=== PATIENT | male | born 1985 | race Caucasian/White ===

== ENCOUNTER 2019-03-08 00:01 | Inpatient (IN) | payer OTHER ==
[~2019-03-08] VITALS: Ht 182.9 cm; Wt 113.4 kg
[2019-03-08] VITALS (7 sets, daily range): BP systolic 98–125; BP diastolic 50–70
--- NOTE | 2019-03-08 00:02 | NUR ---
PT BIBA BLS TAKEN TO BED 2
--- NOTE | 2019-03-08 00:07 | NUR ---
Dr. Reilly examining patient.
[2019-03-08] MEDS ORDERED: ONDANSETRON 4 MG/2 ML VIAL IVP ONE (00:15)
[2019-03-08] MEDS ORDERED: NACL 0.9% 1,000 ML IV ONE (00:15)
--- NOTE | 2019-03-08 00:20 | NUR ---
33/M BIBDmitry FROM A 12/20 PARKING LOT. PT ADMITS TO DRINKING ETOH, AND TAKING 7 DEPAKOTE 500MG TABLETS, AND 3 ZYPREXA 20MG TABLETS. PT AOX4 BUT SLOW TO ANSWER, GCS 13 ([id number]), LETHARGIC, PERRLA 3MM, SKIN NORMAL COLOR WARM AND DRY, RR EVEN AND UNLABORED. REPORTS TOLERABLE GENERALIZED ABD PAIN. DENIES N/V. DENIES SI/HI. HX BIPOLAR RX ZYPREXA, DEPAKOTE
[2019-03-08 00:33] LABS: BASOPHILS % (AUTO) 0.2 % (0.0-2.0); EOSINOPHILS # (AUTO) 0.4 K/uL (0-0.4); EOSINOPHILS % (AUTO) 2.9 % (0.0-4.0); HEMOGLOBIN 13.8 g/dL (12.0-18.0); LYMPHOCYTES # (AUTO) 3.4 K/uL (2.0-11.5); LYMPHOCYTES % (AUTO) 26.5 % (20.5-51.1); MEAN CORPUSCULAR HEMOGLOBIN 30 pg (27-31); MEAN CORPUSCULAR HGB CONC 33 g/dL (33-37); MEAN CORPUSCULAR VOLUME 91.7 fL (80-94); MONOCYTES # (AUTO) 1.2 K/uL (0.8-1.0); MONOCYTES % (AUTO) 9.2 % (1.7-9.3); NEUTROPHILS # (AUTO) 7.8 K/uL (1.8-7.7); NEUTROPHILS % (AUTO) 61.2 % (42.2-75.2); PLATELET COUNT (AUTO) 340 K/uL (140-450); RED BLOOD CELL COUNT(AUTO) 4.58 MIL/uL (4.20-6.10); RED CELL DISTRIBUTION WIDTH 13.3 % (11.6-13.7); WHITE BLOOD COUNT (AUTO) 12.8 K/uL (4.8-10.8)
--- NOTE | 2019-03-08 00:41 | NUR ---
PT'S FAMILY NUMBER MOTHER: [phone], DUSTIN (FATHER): [phone]. PT STATES FATHER DOES NOT LIVE IN THE AREA, BUT MOM DOES. PT REQUESTS TO CALL MOM BEFORE FATHER.
[2019-03-08 00:42] LABS: ANION GAP 10.9 (8-16); CARBON DIOXIDE 28.2 mmol/L (21-32); CREATININE 0.8 mg/dL (0.7-1.3); POTASSIUM 3.1 mmol/L (3.5-5.1)
[2019-03-08 00:46] LABS: ACETAMINOPHEN < 0.5 ug/ml (10-30); SALICYLATE 3.5 mg/dL (2.8-20.0)
[2019-03-08 00:48] LABS: TOTAL BILIRUBIN 0.2 mg/dL (0.0-1.0)
[2019-03-08] MEDS ORDERED: ONDANSETRON 4 MG/2 ML VIAL IVP PRN (01:05)
[2019-03-08] MEDS ORDERED: MORPHINE SULFATE 4 MG/ML SYR IVP PRN (01:05)
[2019-03-08] MEDS ORDERED: HYDROcodone/APAP 5/325 MG 1 TAB TAB PO PRN (01:05)
[2019-03-08] MEDS ORDERED: ALBUTEROL 0.083% 2.5 MG/3 ML NEBU INH PRN (01:05)
[2019-03-08] MEDS ORDERED: ACETAMINOPHEN 325 MG TAB PO PRN (01:05)
[2019-03-08 01:24] LABS: APPEARANCE,URINE CLEAR (CLEAR); BILIRUBIN,URINE NEGATIVE (NEGATIVE); BLOOD, URINE NEGATIVE (NEGATIVE); COLOR,URINE YELLOW (YELLOW); LEUKOCYTE ESTERASE ,URINE NEGATIVE (NEGATIVE); NITRITE, URINE NEGATIVE (NEGATIVE); PH,URINE 6.5 (5.0-9.0); UGLUCOSE NEGATIVE (NEGATIVE)
[2019-03-08 01:32] LABS: BARBITURATE, URINE NEG. ng/ml (NEG <=200); BENZODIAZEPINE, URINE NEG. ng/mL (NEG <=200); CANNABINOID, URINE NEG. ng/mL (NEG <=50); COCAINE, URINE NEG. ng/mL (NEG <=300); OPIATE, URINE NEG. ng/mL (NEG <=2000); PHENCYCLIDINE SCREEN,URINE NEG. ng/mL (NEG <=25)
[2019-03-08] MEDS ORDERED: KCL 20 MEQ/WATER INJ PREMIX 200 ML IV SCH (01:50)
[2019-03-08] MEDS ORDERED: OLAN20TA1 PO (01:55)
[2019-03-08] MEDS ORDERED: DEPER500 PO (01:55)
--- NOTE | 2019-03-08 02:12 | NUR ---
PATIENT ADMITTED TO TELEMETRY UNIT UNDER THE CARE OF DR. Ana SHEIKH, TRANSPORTED VIA GURNEY, IN STABLE CONDITION, BELONGINGS LIST COMPLETED, BEDSIDE REPORT GIVEN TO HENRIQUE SCOTT.
--- NOTE | 2019-03-08 02:20 | NUR ---
Admitted from ED, with chief complaint of BIBA DUE TO FOUND ALTERED IN 12/20, 33 y/o ,Male, Uncooperative, AROUSABLE TO SHAKING AND NAME CALLING. Pt falling lethargic, drowsy and asleep during conversation. Pt still oriented to call light, bed, phone,television, bathroom, smoking policy, visiting hours, procedures, ID bracelet on. Belongings list checked. Seizure precaution reinforced.
--- NOTE | 2019-03-08 02:25 | NUR ---
EXPLAINED TO PT ABOUT USING THE URINAL BUT HE REFUSED TO USE IT AND SAID, "I'M GOING TO THE BATHROOM INSTEAD." THEN PT WENT BACK TO SLEEP.
[2019-03-08] MEDS: NACL 0.9% 1,000 ML IV SCH ×3 (02:36→17:59)
--- NOTE | 2019-03-08 02:41 | NUR ---
PT'S REFUSING MRSA SWAB, SAYING "NO MORE." WILL TRY LATER TO SWAB.
--- NOTE | 2019-03-08 04:20 | NUR ---
SEEN PT ASLEEP BUT AROUSABLE TO SHAKING AND PAIN. IV ACCESS OUT. INSERTED NEW IV ON RT HAND G22. IVF RESUMED ORDERED. NO SEIZURE OBSERVED. VITAL SIGNS CHECKED. CALL LIGHT W/IN REACH. WILL CONTINUE TO MONITOR.
--- NOTE | 2019-03-08 06:55 | NUR ---
PT GOT UP RIGHT AWAY AND WANTS TO GO BATHROOM.
--- NOTE | 2019-03-08 07:08 | NUR ---
WILL ENDORSE CARE TO DAYSHIFT NURSE.
--- NOTE | 2019-03-08 08:20 | NUR ---
PATIENT HAS BEEN SCREENED AND CATEGORIZED LOW NUTRITION RISK. PATIENT WILL BE SEEN WITHIN 7 DAYS OF ADMISSION. 03/14/[address]
--- NOTE | 2019-03-08 08:53 | NUR ---
POISON CONTROL CALLED REGARDING PT LABS AND STATUS, PROVIDE THEM WITH INFORMATION. STATED WILL CALL AGAIN LATER FOR REPEAT LABS.
--- NOTE | 2019-03-08 11:29 | NUR ---
WOUND CARE EVALUATION DONE TO PT. RIGHT HALLUX, SKIN TEAR, 2X2CM WITH SUPERFICIAL DEPTH, WOUND BED IS 100% PINK MOIST, NO ODOR, PHILL-WOUND AREA DRY AND INTACT. INTERSPACES IN BETWEEN TOE WITH DRY FISSURES . PLANTAR AND HEEL AREAS WITH THIN CALLUSES. RECOMMENDATION: -CLEANSE RIGHT TOE WOUND WITH NS, PAT DRY, APPLY VARSETAL DRESSING AND WRAP WITH KERLIX ROLLS Q5 DAYS AND PRN IF SOILING. -KEEP AREA DRY AND CLEAN AT ALL TIMES POC DISCUSSED WITH PRIMARY RN.
--- NOTE | 2019-03-08 12:00 | NUR ---
PT WOKE UP AGITATED STARTED PULLING IV AND TELE MONITOR OFF, NUCLEAR PHYSICIST TALKED TO PT, PT CALMED DOWN AND EATING LUNCH, PT RESTING, NO DISTRESS NOTED, CALL LIGHT WIHTIN REACH, WILL CONTINUE TO MONITOR.
--- NOTE | 2019-03-08 12:50 | NUR ---
RECEIVED BEDSIDE REPORT FROM SHEKHAR DUENAS FOR CONTINUITY OF CARE. PATIENT AWAKE AND SITTING UP ON BED. 1:1 SITTER BY BEDSIDE. NO SIGNS OF DISTRESS NOTED.
--- NOTE | 2019-03-08 13:45 | NUR ---
PATIENT AWAKE AND WATCHING TV ON BED AT THIS TIME. DENIED PAIN, SOB AND DIZZINESS. NO SIGNS OF DISTRESS NOTED. TELE MONITOR ATTACHED. SAFETY MEASURES IN PLACE. BED IN LOW POSITION AND CALL LIGHT WITHIN REACH. 1:1 SITTER BY BEDSIDE. INSTRUCTED PATIENT TO USE THE CALL LIGHT FOR ANY ASSISTANCE AND PATIENT WAS AWARE.
--- NOTE | 2019-03-08 14:00 | NUR ---
STARTED NEW IV ON R HAND 22G, PATIENT TOLERATED WELL. CONTINUED INFUSING PER MD ORDER, PATIENT AWAKE AND WATCHING TV ON BED AT THIS TIME. DENIED PAIN, SOB AND DIZZINESS. NO SIGNS OF DISTRESS NOTED. TELE MONITOR ATTACHED. SAFETY MEASURES IN PLACE. BED IN LOW POSITION AND CALL LIGHT WITHIN REACH. 1:1 SITTER BY BEDSIDE. INSTRUCTED PATIENT TO USE THE CALL LIGHT FOR ANY ASSISTANCE AND PATIENT WAS AWARE.
--- NOTE | 2019-03-08 15:15 | NUR ---
PATIENT IS RESTING ON BED AT THIS TIME. NO SIGNS OF DISTRESS NOTED. SAFETY MEASURES IN PLACE. BED IN LOW POSITION AND CALL LIGHT WITHIN REACH. 1:1 SITTER BY BEDSIDE.
--- NOTE | 2019-03-08 17:29 | NUR ---
PATIENT IS AWAKE AND TALKING TO MOTHER LINDA BY BEDSIDE, NO SIGNS OF DISTRESS NOTED. SAFETY MEASURES IN PLACE.
--- NOTE | 2019-03-08 19:30 | NUR ---
ENDORSED PATIENT AT BEDSIDE TO ADJUSTER ARBITRATOR NURSE FOR CONTINUITY OF CARE. PATIENT IS AWAKE AND TALKING TO MOTHER LINDA AT BEDSIDE. NO SIGNS OF DISTRESS NOTED. SAFETY MEASURES IN PLACE. BED IN LOW POSITION AND 1:1 SITTER BY BEDSIDE. TELE MONITOR ATTACHED.
--- NOTE | 2019-03-08 19:30 | NUR ---
RECEIVED REPORT FROM ANDREZ RN DAYSHIFT NURSE AT BEDSIDE FOR CONTINUITY OF CARE, PT IN STABLE CONDITION.
--- NOTE | 2019-03-08 20:00 | NUR ---
PT IN BED AOX4 MOM AT BEDSIDE PT IN LOW BED WITH ALL SEIZURE PRECAUTIONS IN PLACE AND SITTER AT BEDSIDE. PT HAS RIGHT TOE DRESSING INTACT AND +1 PITTING EDEMA OF RIGHT ANKLE. PT LINNEA ANY PAIN V/S FOLLOWS T 99.3 P 72 R 18 B/P 119/57 02 99% ON ROOM AIR.
--- NOTE | 2019-03-08 20:15 | NUR ---
SPOKE WITH MOTHER OUTSIDE OF ROOM WHO SAID THAT PT IS BIPOLAR AND HOMELESS. SHE SAID THAT WASN'T WILLING TO COMPLY WITH HOUSE RULES FOR EITHER PARENT AND A RESULT IS ON THE STREET. MOTHER SAID THAT HE CAN BECOME AGITATED AND SHE BLAMES THAT ON THE BIPOLAR DISORDER. WILL SPEAK WITH MD FOR A PRN ORDER FOR AGITATION.
--- NOTE | 2019-03-08 21:00 | NUR ---
PT GOT UP FROM BED AND PULLED OUT 22G IV SITE ON RIGHT HAND, CANNULA CAME OUT INTACT. PT SAID HE REFUSES TO HAVE AN IV SITE. PT ALSO REQUESTING A SHOWER. WILL CONTACT GENERAL FORECASTER MD FOR ORDERS.
--- NOTE | 2019-03-08 21:15 | NUR ---
CALLED [facility] [employer], MD HOLLIS [employer] AND WAS PAGED. WAITING CALL BACK.
--- NOTE | 2019-03-08 22:00 | NUR ---
MD HOLLIS CALLED BACK, NEW ORDERS NOTED. MADE AWARE THAT PT DOESN'T WANT IV , SAID OK TO SHOWER AND GAVE 2 ORDERS FOR PRN AGITATION.
[2019-03-08] MEDS ORDERED: HALOPERIDOL IM 5 MG/ML VIAL IM PRN (23:05)
[2019-03-08] MEDS ORDERED: LORazepam 2 MG/ML VIAL IM/IVP PRN (23:05)
[2019-03-09] VITALS: BP 113/70
[2019-03-09] MEDS: NACL 0.9% 1,000 ML IV SCH ×2 (00:05→09:05)
--- NOTE | 2019-03-09 00:22 | NUR ---
PT IN BED RESTING WITH EYES CLOSED BUT AROUSABLE TO LIGHT TOUCH. V/S FOLLOWS T 99.0 P 67 R 18 B/P 113/70 02 99% ON ROOM AIR. PT DENIES PAIN, ALL SEIZURE AND FALLS PRECAUTIONS IN PLACE. 1:1 SITTER AT BEDSIDE.
[2019-03-09 04:00] VITALS: BP 124/80
--- NOTE | 2019-03-09 04:45 | NUR ---
PT IN BED SITTER AT BEDSIDE ALL SEIZURE PRECAUTIONS IN PLACE. V/S FOLLOWS T 98.4 P 70 R 18 B/P 124/80 02 98% ON ROOM AIR. PT TOOK DRESSING OFF R BIG TOE BECAUSE HE SAYS IT HURTS. R BIG TOE WAS REDRESSED, PT GIVEN NORCO PO/PRN FOR MODERATE PAIN.
--- NOTE | 2019-03-09 07:10 | NUR ---
PT RECEIVED FROM NIGHT HENRIQUE BOSWELL. PT IN BED. AAOX4. NO SIGNS OF ACUTE DISTRESS. BREATHING EVEN AND UNLABORED ON ROOM AIR. WILL CONTINUE CARE.
[2019-03-09 08:00] VITALS: BP 115/65
--- NOTE | 2019-03-09 08:45 | NUR ---
PT REMOVED TELE MONITOR AND REFUSED TO PUT IT BACK ON. PT STATED HE WAS FINE AND WAS ANTICIPATING HIS DOCTOR TO "OVER RIDE" THE AND BE RELEASED TODAY. PT RECEIVED EDUCATION REGARDING TELE MONITORING AND STILL REFUSED.
--- NOTE | 2019-03-09 08:53 | NUR ---
DR. NOLAN PAGED TO INFORM OF PT REFUSING TELE MONITORING. WILL WAIT FOR CALL BACK.
--- NOTE | 2019-03-09 08:56 | NUR ---
[employer] MAN DOCTOR, DR. DELGADILLO, RETURNED CALL AND NOTIFIED OF PT REFUSING TELE MONITORING. RECEIVED VERBAL ORDER TO TRANSFER TO [facility] WITH READ BACK VERIFICATION.
--- NOTE | 2019-03-09 09:45 | NUR ---
PT WALKING BACK AND FORTH IN ROOM. PT REFUSED HALDOL AND ATIVAN PO. WILL CONTINUE TO MONITOR.
[2019-03-09 10:36] LABS: BASOPHILS # (AUTO) 0.1 K/uL (0.00-0.22); BASOPHILS % (AUTO) 0.6 % (0.0-2.0); EOSINOPHILS # (AUTO) 0.4 K/uL (0-0.4); EOSINOPHILS % (AUTO) 2.9 % (0.0-4.0); HEMATOCRIT 42.5 % (36-52); HEMOGLOBIN 13.7 g/dL (12.0-18.0); LYMPHOCYTES # (AUTO) 3.2 K/uL (2.0-11.5); LYMPHOCYTES % (AUTO) 26.5 % (20.5-51.1); MEAN CORPUSCULAR HEMOGLOBIN 30 pg (27-31); MEAN CORPUSCULAR HGB CONC 32 g/dL (33-37); MEAN CORPUSCULAR VOLUME 92.7 fL (80-94); MONOCYTES # (AUTO) 1.3 K/uL (0.8-1.0); MONOCYTES % (AUTO) 10.4 % (1.7-9.3); NEUTROPHILS # (AUTO) 7.3 K/uL (1.8-7.7); NEUTROPHILS % (AUTO) 59.6 % (42.2-75.2); PLATELET COUNT (AUTO) 301 K/uL (140-450); RED BLOOD CELL COUNT(AUTO) 4.59 MIL/uL (4.20-6.10); RED CELL DISTRIBUTION WIDTH 13.4 % (11.6-13.7); WHITE BLOOD COUNT (AUTO) 12.2 K/uL (4.8-10.8)
[2019-03-09 10:55] LABS: ALBUMIN 2.9 g/dL (3.4-5.0); ANION GAP 14.2 (8-16); CARBON DIOXIDE 28.6 mmol/L (21-32); CREATININE 0.8 mg/dL (0.7-1.3); POTASSIUM 3.8 mmol/L (3.5-5.1); TOTAL BILIRUBIN 0.1 mg/dL (0.0-1.0)
--- NOTE | 2019-03-09 11:04 | NUR ---
DESIRAE FROM POISON CONTROL CALLED TO FOLLOW-UP ON PT CONDITION. SUGGESTED AMMONIA LEVELS BE REASSESSED.
--- NOTE | 2019-03-09 11:13 | NUR ---
SPOKE TO DR. DELGADILLO REGARDING AMMONIA LEVELS. RECEIVED VERBAL ORDER FOR AMMONIA LEVEL BLOOD DRAW.
--- NOTE | 2019-03-09 12:44 | NUR ---
LEFT A MESSAGE TO DR. CHRISTINE VELASQUEZ (#[phone]) TO FOLLOW UP WITH THE PSYCH CONSULT. AWAITING FOR CALL BACK. FAITH ASSIGNED MADE AWARE.
--- NOTE | 2019-03-09 12:51 | NUR ---
DR. KING CALLED BACK, STATED HE WAS NOT AWARE OF THE CONSULT BUT WILL SEE PT IN 1-2 HRS.
--- NOTE | 2019-03-09 14:24 | NUR ---
DESIRAE FROM POISON CONTROL CALLED BACK REGARDING AMMONIA LEVELS AND VALPROIC ACID LEVEL. POISON CONTROL WILL CLOSE TICKET BECAUSE VALPROIC ACID LEVELS TRENDING DOWN.
--- NOTE | 2019-03-09 16:25 | NUR ---
PT SHOWERED. RECEIVED INFORMATION ABOUT DISCHARGE, NO FURTHER QUESTIONS FROM PATIENT.
[2019-03-09 16:27] VITALS: BP 115/65
--- NOTE | 2019-03-09 16:45 | NUR ---
PT RECEIVED DISCHARGE PACKET AND DISCHARGE TEACHING. ALL PT QUESTIONS ANSWERED. ALL BELONGINGS TAKEN. NO IV AT DISCHARGE, ID BANDS REMOVED. PT STABLE AT DISCHARGE. PT WALKED OFF UNIT WITH BUS PASS. WILL RIDE BUS TO GRANDFATHERS HOUSE.
[2019-03-09 17:20] LABS: MAGNESIUM 1.8 mg/dL (1.8-2.4); PHOSPHORUS 3.6 mg/dL (2.5-4.9)
[2019-03-09] MEDS ORDERED: DIVALPROEX 500 MG TABER PO SCH (21:00)
[2019-03-09] MEDS ORDERED: OLANZapine 5 MG TAB PO SCH (21:00)
--- NOTE | 2019-03-11 13:33 | NUR ---
CONTACTED PATIENT'S PCP DR MCCARTNEY AT [phone], ABLE TO SPEAK TO LUZ REGARDING POST DC APPOINTMENT. SHE PROVIDED ME WITH MAR 20, 2019 AT 1115 AM. ADDRESS TO THE CLINIC IS [address] [place] [id number]. CONTACTED PATIENT AT [phone], INFORMED HIM OF HIS APPOINTMENT AND I ALSO PROVIDED HIM OF THE CLINIC'S ADDRESS AND PHONE NUMBER. ABLE TO VERBALIZE UNDERSTANDING.
== END 2019-03-09 16:51 | disposition home or self-care (01) | DRG 812 ==
LOC: MED 00:01 → MTU 01:09
PROVIDERS: ADMIT Internal Medicine Pulmonary Disease; ATTEND Internal Medicine Pulmonary Disease
DX: T43.591A Poisoning by other antipsychotics and neuroleptics, accidental (unintentional), initial encounter (principal); G92 Toxic encephalopathy; E44.1 Mild protein-calorie malnutrition; F31.9 Bipolar disorder, unspecified; E87.6 Hypokalemia; Y92.89 Other specified places as the place of occurrence of the external cause
CPT/HCPCS: 36415; 71045; 80053; 80305; 81003; 82140; 83735; 84100; 84484; 85025; 93005; 96361; 96374; 99285; G0480; G0482; J2405; J3480; J7030; Q0092